=== PATIENT | male | born 1950 | race African-American/Black ===

== ENCOUNTER 2017-05-01 19:20 | Emergency (ER) | payer MEDICARE ==
[~2017-05-01] VITALS: Ht 175.3 cm; Wt 79.6 kg
[~2017-05-01 19:20] MED LIST: ASPIRIN EC81 MG PO; CEREFOLIN PO; CLOPIDOGREL75 MG PO; DILAUDID 2MG2 MG/TA1 PO; FISH OIL DOUB1200 MG PO; FISH OIL1000 MG PO; FOLIC ACID1 MG PO; HYDRALAZINE50 MG PO; LEVETIRACETAM500 MG PO; LIBRIUM25 M1 PO; LISINOPRIL10 MG PO; LOPRESSOR 550 MG/TAB PO; MELOXICAM7.5 MG PO; MULTI VIT PO; NORVASC10 M1 PO; PRAVACHOL40 MG PO; VITAMIN D31000 UNI1 PO
[2017-05-01] MEDS ORDERED: BACTRIM DS1 TAB PO (21:08)
[2017-05-01 21:45] VITALS: BP 162/74
== END 2017-05-01 21:44 | disposition home or self-care (01) ==
LOC: ED 19:20
PROC: 0H95XZZ Drainage of Chest Skin, External Approach (ICD-10-PCS; principal; 2017-05-01)
DX: L02.213 Cutaneous abscess of chest wall (principal); I10 Essential (primary) hypertension; Z85.46 Personal history of malignant neoplasm of prostate

== ENCOUNTER 2017-05-02 20:37 | Emergency (ER) | payer MEDICARE ==
[~2017-05-02] VITALS: Ht 175.3 cm; Wt 79.8 kg
[~2017-05-02 20:37] MED LIST changes: +BACTRIM DS1 TAB PO
[2017-05-02 21:42] VITALS: BP 124/74
== END 2017-05-02 21:42 | disposition home or self-care (01) ==
LOC: ED 20:37
DX: Z48.01 Encounter for change or removal of surgical wound dressing (principal)

== ENCOUNTER 2017-05-03 18:17 | Emergency (ER) | payer MEDICARE ==
[~2017-05-03] VITALS: Ht 175.3 cm; Wt 79.1 kg
[2017-05-03 20:10] VITALS: BP 125/81
== END 2017-05-03 20:10 | disposition home or self-care (01) ==
LOC: ED 18:17
DX: Z48.01 Encounter for change or removal of surgical wound dressing (principal)

== ENCOUNTER 2017-05-05 08:46 | Emergency (ER) | payer MEDICARE ==
[~2017-05-05] VITALS: Ht 175.3 cm; Wt 79.0 kg
[2017-05-05 09:50] VITALS: BP 122/62
== END 2017-05-05 09:50 | disposition home or self-care (01) ==
LOC: ED 08:46
DX: Z48.01 Encounter for change or removal of surgical wound dressing (principal)

== ENCOUNTER 2017-05-08 08:07 | Emergency (ER) | payer MEDICARE ==
[~2017-05-08] VITALS: Ht 175.3 cm; Wt 72.0 kg
[2017-05-08 08:29] VITALS: BP 128/77
== END 2017-05-08 08:26 | disposition home or self-care (01) ==
LOC: ED 08:07
DX: Z48.01 Encounter for change or removal of surgical wound dressing (principal)

== ENCOUNTER 2018-06-25 08:00 | Emergency (ER) | payer MEDICARE ==
[~2018-06-25] VITALS: Ht 175.3 cm; Wt 80.0 kg
[2018-06-25] MEDS ORDERED: BACTRIM DS1 TAB PO (08:20)
[2018-06-25] MEDS ORDERED: CEPHALEXIN500 MG PO (08:20)
[2018-06-25 09:03] VITALS: BP 124/67
== END 2018-06-25 09:03 | disposition home or self-care (01) ==
LOC: ED 08:00
PROC: 0H9CXZZ Drainage of Left Upper Arm Skin, External Approach (ICD-10-PCS; principal; 2018-06-25)
DX: L02.414 Cutaneous abscess of left upper limb (principal)

== ENCOUNTER 2018-06-27 06:47 | Emergency (ER) | payer MEDICARE ==
[~2018-06-27] VITALS: Ht 175.3 cm; Wt 80.0 kg
[~2018-06-27 06:47] MED LIST changes: +CEPHALEXIN500 MG PO
[2018-06-27 07:31] VITALS: BP 119/64
== END 2018-06-27 07:40 | disposition home or self-care (01) ==
LOC: ED 06:47
DX: Z48.01 Encounter for change or removal of surgical wound dressing (principal)

== ENCOUNTER 2018-07-01 14:27 | Emergency (ER) | payer MEDICARE ==
[~2018-07-01] VITALS: Ht 175.3 cm; Wt 73.2 kg
[2018-07-01 15:36] VITALS: BP 124/65
== END 2018-07-01 15:36 | disposition home or self-care (01) ==
LOC: ED 14:27
DX: Z48.01 Encounter for change or removal of surgical wound dressing (principal); I10 Essential (primary) hypertension

== ENCOUNTER 2018-11-20 16:41 | Emergency (ER) | payer MEDICARE ==
[~2018-11-20] VITALS: Ht 175.3 cm; Wt 79.0 kg
[2018-11-20] MEDS ORDERED: BACTRIM DS1 TAB PO (17:16)
[2018-11-20] MEDS ORDERED: CEPHALEXIN500 M1 PO (17:16)
[2018-11-20 18:02] VITALS: BP 182/85
== END 2018-11-20 18:02 | disposition home or self-care (01) ==
LOC: ED 16:41
PROC: 0H96XZZ Drainage of Back Skin, External Approach (ICD-10-PCS; principal; 2018-11-20)
DX: L02.212 Cutaneous abscess of back [any part, except buttock and flank] (principal)

== ENCOUNTER 2018-11-22 07:03 | Emergency (ER) | payer MEDICARE ==
[~2018-11-22] VITALS: Ht 175.3 cm; Wt 70.0 kg
[~2018-11-22 07:03] MED LIST changes: +CEPHALEXIN500 M1 PO
[2018-11-22 07:45] VITALS: BP 122/60
== END 2018-11-22 07:51 | disposition home or self-care (01) ==
LOC: ED 07:03
DX: Z48.01 Encounter for change or removal of surgical wound dressing (principal); I10 Essential (primary) hypertension

== ENCOUNTER 2018-11-25 07:21 | Emergency (ER) | payer MEDICARE ==
[~2018-11-25] VITALS: Ht 175.3 cm; Wt 60.0 kg
[2018-11-25 07:37] VITALS: BP 128/66
== END 2018-11-25 07:48 | disposition home or self-care (01) ==
LOC: ED 07:21
DX: Z48.01 Encounter for change or removal of surgical wound dressing (principal); I10 Essential (primary) hypertension

== ENCOUNTER 2018-11-28 07:13 | Emergency (ER) | payer MEDICARE ==
[~2018-11-28] VITALS: Ht 175.3 cm; Wt 80.0 kg
[2018-11-28 07:45] VITALS: BP 108/61
== END 2018-11-28 07:53 | disposition home or self-care (01) ==
LOC: ED 07:13
DX: Z48.01 Encounter for change or removal of surgical wound dressing (principal); I10 Essential (primary) hypertension

== ENCOUNTER 2019-02-02 15:34 | Emergency (ER) | payer MEDICARE ==
[~2019-02-02] VITALS: Ht 175.3 cm; Wt 75.0 kg
[2019-02-02] MEDS ORDERED: COZAAR100 MG PO (15:52)
[2019-02-02] MEDS ORDERED: DONEPEZIL HCL10 M1 (15:53)
[2019-02-02 15:57] LABS: HEMOGLOBIN 8.6 g/dl (14.0-18.0); IMMATURE GRANULOCYTES 0.2 % (0.0-5.0); MEAN CELL VOLUME 71.6 fL CALC (80.0-100.0); MEAN CORPUSCULAR HGB 22.8 pG CALC (26.0-32.0); MEAN CORPUSCULAR HGB CONC 31.9 g/L CALC (32.0-36.0); NEUT# 3.19 thou/uL (1.82-7.42); RED BLOOD COUNT 3.77 mill/uL (4.70-6.10); RED CELL DISTRI WIDTH 15.2 % (11.5-15.5)
[2019-02-02 16:13] LABS: PROTHROMBIN TIME 10.8 SECONDS (9.0-12.5)
[2019-02-02 16:17] LABS: ALBUMIN 4.5 g/dL (3.2-5.0); ALKALINE PHOSPHATASE 54 u/l (38-126); ANION GAP 17 (6-22 (CALC)); BILIRUBIN, TOTAL 0.5 mg/dL (0.0-1.4); BUN 14 mg/dL (8-23); BUN/CREATININE RATIO 11 (12-20 (CALC)); CHLORIDE 103 mmol/l (95-108); CREATININE 1.3 mg/dL (0.7-1.3); ETHYL ALCOHOL 0 mg/dl (0-30); GFR 55 ML/MIN (>=60 (CALC)); GFR FOR AFR.AMER. > 60 ML/MIN (>=60 (CALC)); LIPASE 87 u/l (23-300); SGOT/AST 24 u/l (19-48); SODIUM 135 mmol/l (137-146); TOTAL PROTEIN 7.8 g/dL (6.3-8.2)
[2019-02-02 16:21] LABS: CARBON DIOXIDE 19 mmol/l (22-30)
[2019-02-02 17:05] LABS: URINE BILIRUBIN - DIPSTICK NEGATIVE (NEGATIVE); URINE BLOOD DIPSTICK NEGATIVE (NEGATIVE); URINE COLOR YELLOW; URINE GLUCOSE - DIPSTICK 100 mg/dL (NEGATIVE); URINE KETONE NEGATIVE (NEGATIVE); URINE LEUK ESTERASE NEGATIVE (NEGATIVE); URINE NITRITE - DIPSTICK NEGATIVE (Negative); URINE PH 7.5 (4.5-8.0); URINE PROTEIN - DIPSTICK 100 mg/dL (NEG-TRACE); URINE SPECIFIC GRAVITY 1.015; URINE UROBILINOGEN - DIPSTICK 0.2 E.U./dL (0.2)
[2019-02-02 17:09] LABS: URINE MUCUS FEW hpf (NONE-FEW); URINE SQUAMOUS EPITHELIAL CELL FEW EPI/hpf (0-FEW)
[2019-02-02 17:11] LABS: BARBITURATES NEGATIVE (NEGATIVE); COCAINE NEGATIVE (NEGATIVE); METHADONE NEGATIVE (NEGATIVE); OXCYCODONE NEGATIVE (NEGATIVE); TETRAHYDROCANNABIONOL NEGATIVE (NEGATIVE); TRICYLIC ANTIDEPRESSANTS NEGATIVE (NEGATIVE)
[2019-02-02 17:39] VITALS: BP 132/71
== END 2019-02-02 17:39 | disposition home or self-care (01) ==
LOC: ED 15:34
DX: T67.5XXA Heat exhaustion, unspecified, initial encounter (principal); R55 Syncope and collapse; I10 Essential (primary) hypertension; X30.XXXA Exposure to excessive natural heat, initial encounter